=== PATIENT | male | born 2000 | race Caucasian/White ===

== ENCOUNTER 2025-09-07 21:31 | Emergency (ER) | payer BC | END 2025-09-07 22:38 | disposition home or self-care (01) | LOC: DL.ED 21:31 | DX: S90.121A Contusion of right lesser toe(s) without damage to nail, initial encounter (principal); F17.200 Nicotine dependence, unspecified, uncomplicated; Z86.16 Personal history of COVID-19; W22.8XXA Striking against or struck by other objects, initial encounter | CPT/HCPCS: 73620-RT; 99283 ==